=== PATIENT | female | born 2000 | race Caucasian/White ===

== ENCOUNTER 2022-01-13 19:48 | Emergency (ER) | payer MEDICAID | END 2022-01-13 22:50 | disposition home or self-care (01) | LOC: JP.ED 19:48 | DX: R55 Syncope and collapse (principal); I47.9 Paroxysmal tachycardia, unspecified; R00.2 Palpitations | CPT/HCPCS: 36415; 80048; 83735; 84439; 84443; 85025; 93005; 93010; 99283; 99284-25 ==

== ENCOUNTER 2024-03-11 00:41 | Emergency (ER) | payer BC ==
[2024-03-11] MEDS: Ketorolac 30 MG/ML SDV IM ONE (01:27)
[2024-03-11] MEDS: Acetaminophen/oxyCODONE 325-5 MG Tab PO ONE (01:29)
== END 2024-03-11 01:30 | disposition home or self-care (01) ==
LOC: JP.ED 00:41
DX: K04.7 Periapical abscess without sinus (principal); J45.909 Unspecified asthma, uncomplicated; Z79.899 Other long term (current) drug therapy; Z86.16 Personal history of COVID-19
CPT/HCPCS: 96372; 99282; 99283; A9270; J1885